=== PATIENT | male | born 1980 | race Caucasian/White ===

== ENCOUNTER 2016-09-01 01:51 | Emergency (ER) | payer OTHER ==
[2016-09-01 02:55] VITALS: BP 131/28
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
== END 2016-09-01 02:25 | disposition home or self-care (01) ==
LOC: FB.ED 01:51
DX: S01.81XA Laceration without foreign body of other part of head, initial encounter (principal); W22.8XXA Striking against or struck by other objects, initial encounter
CPT/HCPCS: 12013; 99282; 99283